=== PATIENT | male | born 1975 | race Caucasian/White ===

== ENCOUNTER 2016-04-25 05:09 | Observation (INO) ==
[2016-04-25 05:53] LABS: Basophils # 0.1 K/mcL (0.0-0.2); Basophils % 0.5 %; Eosinophils # 0.1 K/mcL (0.0-0.6); Eosinophils % 0.4 %; Hematocrit 44.6 % (37.5-50.1); Hemoglobin 15.1 g/dL (12.9-16.9); Immature Granulocytes % 0.6 % (0-4); Lymphocytes # 1.3 K/mcL (0.6-4.6); Lymphocytes % 11.4 %; Mean Corpuscular HGB Conc 33.9 g/dL (31.6-35.5); Mean Corpuscular Hemoglobin 29.5 pg (28.0-33.3); Mean Corpuscular Volume 87.1 fL (83.0-100.0); Mean Platelet Volume 9.4 fL (9.4-12.4); Monocytes % 8.6 %; Neutrophils # 9.1 K/mcL (1.6-8.9); Platelet Count 287 K/mcL (140-400); Red Blood Count 5.12 M/mcL (4.19-5.50); Red Cell Distribution Width 13.8 % (11.5-14.5); Segmented Neutrophils % 78.5 %
--- NOTE | 2016-04-25 05:58 | Emergency Department Note ---
Disposition Clinical Impression: Light-headedness Disposition: Still a Patient Condition: Fair Referrals: Unassigned,Provider [Non-Partnered Physician] - Forms: ED Satisfaction Letter Time of Disposition: 06:24 General Adult HPI - General Chief complaint: ED Dizziness Stated complaint: dizziness Time Seen by Provider: 04/25/16 05:14 Source: patient Limitations: no limitations Nursing Notes Reviewed: Yes Vital Signs Reviewed: Yes - History of Present Illness HPI Narrative: 40 yo male c/o acute onset of dizziness, lightheadedness, weakness. He states he symptoms started upon waking approximately 12 hours ago. His symptoms are completely to some shortness of breath. Describes some head pain that radiates down to his neck. Dizziness and symptoms are worse with movement of his head. Denies any chest pain exertional component of the symptoms, diaphoresis, extremity pain. Since he has been noncompliant with his hypertensive medication. Pain Scale: 10 - Related Data Allergies Allergy/AdvReac Type Severity Reaction Status Date / Time No Known Allergies Allergy Verified 04/25/16 06:21 All systems ED: reviewed and negative except as stated. Constitutional: Denies: fever, chills Eyes: Denies: vision change ENT ED: Denies: throat pain Cardiovascular: Denies: chest pain, palpitations, syncope Respiratory: Reports: dyspnea. Denies: cough Gastrointestinal: Denies: abdominal pain, nausea, vomiting Genitourinary: Denies: dysuria Musculoskeletal: Denies: back pain Integumentary: Reports: rash Neurological: Reports: as per HPI. Denies: headache Endocrine: Denies: fatigue Allergic/Immunologic: Denies: facial swelling Past Medical History - Past Medical History Medical history: Reports: hypertension, other Psychiatric history: Reports: no psych history - Social History Smoking Status: Current every day smoker Smokeless Tobacco Status: No Alcohol use: Reports: occasionally Drug use: Reports: none Physical Exam - General Limitations: no limitations General appearance: alert, in no apparent distress - Head Head exam: atraumatic - Eye Eye exam: Present: PERRL, EOMI. Absent: conjunctival injection - ENT ENT exam: mucous membranes moist - Chest Chest inspection: Present: normal inspection, symmetric chest wall rise - Respiratory Respiratory exam: Present: normal lung sounds bilaterally. Absent: respiratory distress - Cardiovascular Cardiovascular exam: Present: normal rhythm, tachycardia - Abdominal Exam Abdominal exam: Present: soft, Non-Tender - Male Scrotal exam: cremasteric reflex present: left - Extremities Exam Extremities exam: Present: normal capillary refill - Expanded Lower Extremity Exam Hip/Pelvis exam: Present: tenderness (right inguinal and anterior thigh) Knee exam: Absent: tenderness Lower leg exam: Present: tenderness (right medial posterior calf), erythema Neurovascular/Tendon exam: Present: normal capillary refill - Back Exam Back exam: Present: full ROM - Neurological Exam Neurological exam: Present: alert, oriented X3, CN II-XII intact - Expanded Neurological Exam Patient oriented to: Present: person, place, time Speech: Present: fluid speech Cerebellar function: finger to nose: Normal, heel to heath: Normal Motor strength - LUE: 5/5 Motor strength - RUE: 5/5 Motor strength - LLE: 5/5 Motor strength - RLE: 5/5 Coma Scale Eye Opening: Spontaneous Coma Scale Motor Response: Obeys Commands Coma Scale Verbal Response: Oriented Coma Scale Total: 15 - Psychiatric Psychiatric exam: Present: normal affect, normal mood - Skin Skin exam: Present: warm, dry, intact, rash (scaly raised patches on erythematous base consistent with psoriasis) Course Course Narrative: Patient presents with multiple complaints. Onset approx 12 hours ago. Pt seen and examined. Pt alert oriented x3. In no acute distress. No gross focal neuro deficits. Cellulitic area over right calf. Pt non compliant with BP meds , and currently taking Enbrel biologic injections for psoriasis. Workup initiated. Patient denies any pain medications at this time. Initial EKG was sinus tachycardia. At this point in time it is at the end of my shift, care of this patient will be transferred over to day shift who will handle additional evaluation, final evaluation and disposition. Please see their further documentation for details. Vital Signs Temperature 99.9 F H 04/25/16 05:10 Pulse Rate 122 04/25/16 05:10 Respiratory Rate 24 04/25/16 05:10 Blood Pressure 150/118 04/25/16 05:10 O2 Sat by Pulse Oximetry 99 04/25/16 05:10 Temperature 99.9 F H 04/25/16 05:10 Pulse Rate 112 04/25/16 06:15 Respiratory Rate 18 04/25/16 06:15 Blood Pressure 162/109 04/25/16 06:15 O2 Sat by Pulse Oximetry 97 03/04/17 06:15 Oxygen Delivery Oxygen Delivery Room Air Medical Decision Making - Lab Data Result diagrams: 04/25/16 05:32 04/25/16 05:32 Lab Results 04/25/16 04/25/16 04/25/16 Range/Units 05:32 05:32 05:32 WBC 11.5 H (4.3-11.1) K/mcL RBC 5.12 (4.19-5.50) M/mcL Hgb 15.1 (12.9-16.9) g/dL Hct 44.6 (37.5-50.1) % MCV 87.1 (83.0-100.0) fL MCH 29.5 (28.0-33.3) pg MCHC 33.9 (31.6-35.5) g/dL RDW 13.8 (11.5-14.5) % Plt Count 287 (140-400) K/mcL MPV 9.4 (9.4-12.4) fL Immature Gran % 0.6 (0-4) % Seg Neutrophils % 78.5 % Lymphocytes % 11.4 % Monocytes % 8.6 % Eosinophils % 0.4 % Basophils % 0.5 % Neutrophils # 9.1 H (1.6-8.9) K/mcL Lymphocytes # 1.3 (0.6-4.6) K/mcL Monocytes # 1.0 (0.0-1.3) K/mcL Eosinophils # 0.1 (0.0-0.6) K/mcL Basophils # 0.1 (0.0-0.2) K/mcL APTT (26.0-36.0) Seconds D-Dimer (0-500) ng/mLFEU Sodium 137 (136-145) mEq/L Potassium 3.7 (3.5-4.5) mEq/L Chloride 103 (98-109) mEq/L Carbon Dioxide 24 (19-29) mEq/L BUN 13 (8-26) mg/dL Creatinine 1.32 H (0.72-1.25) mg/dL Est GFR ( Amer) > 60 (> 60) Est GFR (Non-Af Amer) 60 (> 60) BUN/Creatinine Ratio 10 (6-26) Glucose 95 (70-99) mg/dL Calculated Osmolality 284 (280-300) Calcium 8.8 (8.6-10.8) mg/dL Troponin I 0.00 (0-0.03) ng/mL 04/25/16 Range/Units 05:32 WBC (4.3-11.1) K/mcL RBC (4.19-5.50) M/mcL Hgb (12.9-16.9) g/dL Hct (37.5-50.1) % MCV (83.0-100.0) fL MCH (28.0-33.3) pg MCHC (31.6-35.5) g/dL RDW (11.5-14.5) % Plt Count (140-400) K/mcL MPV (9.4-12.4) fL Immature Gran % (0-4) % Seg Neutrophils % % Lymphocytes % % Monocytes % % Eosinophils % % Basophils % % Neutrophils # (1.6-8.9) K/mcL Lymphocytes # (0.6-4.6) K/mcL Monocytes # (0.0-1.3) K/mcL Eosinophils # (0.0-0.6) K/mcL Basophils # (0.0-0.2) K/mcL APTT 28.3 (26.0-36.0) Seconds D-Dimer 599 H (0-500) ng/mLFEU Sodium (136-145) mEq/L Potassium (3.5-4.5) mEq/L Chloride (98-109) mEq/L Carbon Dioxide (19-29) mEq/L BUN (8-26) mg/dL Creatinine (0.72-1.25) mg/dL Est GFR ( Amer) (> 60) Est GFR (Non-Af Amer) (> 60) BUN/Creatinine Ratio (6-26) Glucose (70-99) mg/dL Calculated Osmolality (280-300) Calcium (8.6-10.8) mg/dL Troponin I (0-0.03) ng/mL Attestation Statement - Attestation Attestation: I am signing this chart in accordance with current hospital policy. I did not perform a history and physical exam on this patient. I was not directly involved in this patients care during their Emergency Department visit. James Riley MD
[2016-04-25 06:00] LABS: BUN/Creatinine Ratio 10 (6-26); Blood Urea Nitrogen 13 mg/dL (8-26); Calcium 8.8 mg/dL (8.6-10.8); Carbon Dioxide 24 mEq/L (19-29); Chloride 103 mEq/L (98-109); Glucose 95 mg/dL (70-99); Osmolality,Calculated 284 (280-300); Potassium 3.7 mEq/L (3.5-4.5); Sodium 137 mEq/L (136-145); eGFR For African Americans > 60 (> 60); eGFR For Non-African Americans 60 (> 60)
[2016-04-25 06:12] LABS: Activated Partial Thrombo Time 28.3 Seconds (26.0-36.0)
[2016-04-25] MEDS ORDERED: 0.9 % Sodium Chloride 1,000 ML IVC ONE ×2 (06:17→06:50)
--- NOTE | 2016-04-25 07:35 | Emergency Department Note ---
Disposition Clinical Impression: Light-headedness, Transient cerebral ischemia Disposition: Admitted As Inpatient Condition: Fair Referrals: Unassigned,Provider [Non-Partnered Physician] - Forms: ED Satisfaction Letter Time of Disposition: 09:45 General Adult HPI - General Chief complaint: ED Dizziness Stated complaint: dizziness Time Seen by Provider: 04/25/16 05:14 Source: patient Mode of arrival: private vehicle Limitations: no limitations Nursing Notes Reviewed: Yes Vital Signs Reviewed: Yes - History of Present Illness Pain Scale: 10 - Related Data Allergies Allergy/AdvReac Type Severity Reaction Status Date / Time No Known Allergies Allergy Verified 04/25/16 06:21 Past Medical History - Past Medical History Medical history: Reports: hypertension, other Psychiatric history: Reports: no psych history - Social History Smoking Status: Current every day smoker Smokeless Tobacco Status: No Alcohol use: Reports: occasionally Drug use: Reports: none Physical Exam - General Limitations: no limitations General appearance: alert, in no apparent distress Course - Reevaluation(s) Reevaluation #1: 40-year-old male complaining of dizziness, fatigue and generalized weakness. I took over care of this patient at 0 600. Patient had a positive d-dimer, we ruled out pulmonary embolism and DVT with CTA of the chest as well as a venous Doppler. Patient was ambulated after receiving IV fluids and had an ataxic gait. I discussed this with Dr. Bailey and patient will have an MRI of the brain performed. Patient will be reevaluated after this imaging study, possible admission if symptoms do not subside. Time: 08:00 Reevaluation #2: MRI of the brain negative for any acute process, however attempted to ambulate patient and he remains ataxic. Questionable if patient is having TIA-like symptoms as he describes numbness and tingling to his face. Discussed with hospitalist, will admit patient for ataxia, TIA rule out, dizziness/ lightheadedness. I discussed this with patient and he verbalized understanding and agreement with plan of care. Vital signs currently within normal limits. Time: 09:41 Vital Signs Temperature 99.9 F H 04/25/16 05:10 Pulse Rate 122 04/25/16 05:10 Respiratory Rate 24 04/25/16 05:10 Blood Pressure 150/118 04/25/16 05:10 O2 Sat by Pulse Oximetry 99 04/25/16 05:10 Temperature 99.1 F 04/25/16 08:05 Pulse Rate 102 04/25/16 09:31 Respiratory Rate 18 04/25/16 09:31 Blood Pressure 132/91 04/25/16 09:31 O2 Sat by Pulse Oximetry 97 04/25/16 09:31 Oxygen Delivery Oxygen Delivery Room Air Medical Decision Making - Lab Data Result diagrams: 04/25/16 05:32 04/25/16 05:32 Lab Results 04/25/16 04/25/16 04/25/16 Range/Units 05:32 05:32 05:32 WBC 11.5 H (4.3-11.1) K/mcL RBC 5.12 (4.19-5.50) M/mcL Hgb 15.1 (12.9-16.9) g/dL Hct 44.6 (37.5-50.1) % MCV 87.1 (83.0-100.0) fL MCH 29.5 (28.0-33.3) pg MCHC 33.9 (31.6-35.5) g/dL RDW 13.8 (11.5-14.5) % Plt Count 287 (140-400) K/mcL MPV 9.4 (9.4-12.4) fL Immature Gran % 0.6 (0-4) % Seg Neutrophils % 78.5 % Lymphocytes % 11.4 % Monocytes % 8.6 % Eosinophils % 0.4 % Basophils % 0.5 % Neutrophils # 9.1 H (1.6-8.9) K/mcL Lymphocytes # 1.3 (0.6-4.6) K/mcL Monocytes # 1.0 (0.0-1.3) K/mcL Eosinophils # 0.1 (0.0-0.6) K/mcL Basophils # 0.1 (0.0-0.2) K/mcL APTT (26.0-36.0) Seconds D-Dimer (0-500) ng/mLFEU Sodium 137 (136-145) mEq/L Potassium 3.7 (3.5-4.5) mEq/L Chloride 103 (98-109) mEq/L Carbon Dioxide 24 (19-29) mEq/L BUN 13 (8-26) mg/dL Creatinine 1.32 H (0.72-1.25) mg/dL Est GFR ( Amer) > 60 (> 60) Est GFR (Non-Af Amer) 60 (> 60) BUN/Creatinine Ratio 10 (6-26) Glucose 95 (70-99) mg/dL Calculated Osmolality 284 (280-300) Lactic Acid (0.5-2.2) mmol/L Calcium 8.8 (8.6-10.8) mg/dL Troponin I 0.00 (0-0.03) ng/mL 04/25/16 04/25/16 Range/Units 05:32 05:32 WBC (4.3-11.1) K/mcL RBC (4.19-5.50) M/mcL Hgb (12.9-16.9) g/dL Hct (37.5-50.1) % MCV (83.0-100.0) fL MCH (28.0-33.3) pg MCHC (31.6-35.5) g/dL RDW (11.5-14.5) % Plt Count (140-400) K/mcL MPV (9.4-12.4) fL Immature Gran % (0-4) % Seg Neutrophils % % Lymphocytes % % Monocytes % % Eosinophils % % Basophils % % Neutrophils # (1.6-8.9) K/mcL Lymphocytes # (0.6-4.6) K/mcL Monocytes # (0.0-1.3) K/mcL Eosinophils # (0.0-0.6) K/mcL Basophils # (0.0-0.2) K/mcL APTT 28.3 (26.0-36.0) Seconds D-Dimer 599 H (0-500) ng/mLFEU Sodium (136-145) mEq/L Potassium (3.5-4.5) mEq/L Chloride (98-109) mEq/L Carbon Dioxide (19-29) mEq/L BUN (8-26) mg/dL Creatinine (0.72-1.25) mg/dL Est GFR ( Amer) (> 60) Est GFR (Non-Af Amer) (> 60) BUN/Creatinine Ratio (6-26) Glucose (70-99) mg/dL Calculated Osmolality (280-300) Lactic Acid 1.3 (0.5-2.2) mmol/L Calcium (8.6-10.8) mg/dL Troponin I (0-0.03) ng/mL
[2016-04-25] MEDS ORDERED: Ketorolac 15 MG/ML VIAL IVP ONE (07:50)
--- NOTE | 2016-04-25 07:53 | Emergency Department Note ---
Disposition Clinical Impression: Light-headedness Disposition: Still a Patient Condition: Fair Referrals: Unassigned,Provider [Non-Partnered Physician] - Forms: ED Satisfaction Letter General Adult HPI - General Chief complaint: ED Dizziness Stated complaint: dizziness Time Seen by Provider: 04/25/16 05:14 Source: patient Mode of arrival: private vehicle Limitations: no limitations - History of Present Illness Pain Scale: 10 - Related Data Allergies Allergy/AdvReac Type Severity Reaction Status Date / Time No Known Allergies Allergy Verified 04/25/16 06:21 Constitutional: Denies: fever, chills Eyes: Denies: vision change ENT ED: Denies: throat pain Cardiovascular: Denies: chest pain, palpitations, syncope Respiratory: Reports: dyspnea. Denies: cough Gastrointestinal: Denies: abdominal pain, nausea, vomiting Genitourinary: Denies: dysuria Musculoskeletal: Denies: back pain Integumentary: Reports: rash Neurological: Reports: as per HPI. Denies: headache Endocrine: Denies: fatigue Allergic/Immunologic: Denies: facial swelling Past Medical History - Past Medical History Medical history: Reports: hypertension, other Psychiatric history: Reports: no psych history - Social History Smoking Status: Current every day smoker Smokeless Tobacco Status: No Alcohol use: Reports: occasionally Drug use: Reports: none Physical Exam - General Limitations: no limitations General appearance: alert, in no apparent distress Course Vital Signs Temperature 99.9 F H 04/25/16 05:10 Pulse Rate 122 04/25/16 05:10 Respiratory Rate 24 04/25/16 05:10 Blood Pressure 150/118 04/25/16 05:10 O2 Sat by Pulse Oximetry 99 04/25/16 05:10 Temperature 99.9 F H 04/25/16 05:10 Pulse Rate 108 04/25/16 07:20 Respiratory Rate 18 04/25/16 07:20 Blood Pressure 136/90 04/25/16 07:20 O2 Sat by Pulse Oximetry 98 04/25/16 07:20 Oxygen Delivery Oxygen Delivery Room Air Medical Decision Making - Lab Data Result diagrams: 04/25/16 05:32 04/25/16 05:32 Lab Results 04/25/16 04/25/16 04/25/16 Range/Units 05:32 05:32 05:32 WBC 11.5 H (4.3-11.1) K/mcL RBC 5.12 (4.19-5.50) M/mcL Hgb 15.1 (12.9-16.9) g/dL Hct 44.6 (37.5-50.1) % MCV 87.1 (83.0-100.0) fL MCH 29.5 (28.0-33.3) pg MCHC 33.9 (31.6-35.5) g/dL RDW 13.8 (11.5-14.5) % Plt Count 287 (140-400) K/mcL MPV 9.4 (9.4-12.4) fL Immature Gran % 0.6 (0-4) % Seg Neutrophils % 78.5 % Lymphocytes % 11.4 % Monocytes % 8.6 % Eosinophils % 0.4 % Basophils % 0.5 % Neutrophils # 9.1 H (1.6-8.9) K/mcL Lymphocytes # 1.3 (0.6-4.6) K/mcL Monocytes # 1.0 (0.0-1.3) K/mcL Eosinophils # 0.1 (0.0-0.6) K/mcL Basophils # 0.1 (0.0-0.2) K/mcL APTT (26.0-36.0) Seconds D-Dimer (0-500) ng/mLFEU Sodium 137 (136-145) mEq/L Potassium 3.7 (3.5-4.5) mEq/L Chloride 103 (98-109) mEq/L Carbon Dioxide 24 (19-29) mEq/L BUN 13 (8-26) mg/dL Creatinine 1.32 H (0.72-1.25) mg/dL Est GFR ( Amer) > 60 (> 60) Est GFR (Non-Af Amer) 60 (> 60) BUN/Creatinine Ratio 10 (6-26) Glucose 95 (70-99) mg/dL Calculated Osmolality 284 (280-300) Lactic Acid (0.5-2.2) mmol/L Calcium 8.8 (8.6-10.8) mg/dL Troponin I 0.00 (0-0.03) ng/mL 04/25/16 04/25/16 Range/Units 05:32 05:32 WBC (4.3-11.1) K/mcL RBC (4.19-5.50) M/mcL Hgb (12.9-16.9) g/dL Hct (37.5-50.1) % MCV (83.0-100.0) fL MCH (28.0-33.3) pg MCHC (31.6-35.5) g/dL RDW (11.5-14.5) % Plt Count (140-400) K/mcL MPV (9.4-12.4) fL Immature Gran % (0-4) % Seg Neutrophils % % Lymphocytes % % Monocytes % % Eosinophils % % Basophils % % Neutrophils # (1.6-8.9) K/mcL Lymphocytes # (0.6-4.6) K/mcL Monocytes # (0.0-1.3) K/mcL Eosinophils # (0.0-0.6) K/mcL Basophils # (0.0-0.2) K/mcL APTT 28.3 (26.0-36.0) Seconds D-Dimer 599 H (0-500) ng/mLFEU Sodium (136-145) mEq/L Potassium (3.5-4.5) mEq/L Chloride (98-109) mEq/L Carbon Dioxide (19-29) mEq/L BUN (8-26) mg/dL Creatinine (0.72-1.25) mg/dL Est GFR ( Amer) (> 60) Est GFR (Non-Af Amer) (> 60) BUN/Creatinine Ratio (6-26) Glucose (70-99) mg/dL Calculated Osmolality (280-300) Lactic Acid 1.3 (0.5-2.2) mmol/L Calcium (8.6-10.8) mg/dL Troponin I (0-0.03) ng/mL Attestation Statement - Attestation Attestation: I examined this patient and my medical decision-making was reviewed with the KEY ACCOUNT COORDINATOR/PA/Advanced Practice Nurse/Resident Physician. I agree with the documented findings, disposition and treatment plan as described except to the extent set forth below. She was seen and evaluated by Rufus, physician radiology physician assistant and Dr. Riley, the night physician He ambulated to the bathroom and was visualized to be ataxic. I did review his labs and imaging studies. He has a low-grade fever and tachycardia. He remained symptomatic in terms of feeling dizzy. MRI brain ordered.
[2016-04-25] MEDS ORDERED: Naloxone 0.4 MG/ML INJ IVP PRN (10:17)
--- NOTE | 2016-04-25 10:36 | Internal Med History&Physical ---
Date of Encounter: 04/25/16 Time of Encounter: 10:27 Assessment and Plan (1) Light-headedness Status: Acute Lightheadedness: -Patient of the persistent lightheadedness. -Noted that there is a mildly elevated white blood cell count. -Patient has an ataxic gait, normal MRI. -Patient's tympanic membrane on both sides is normal. -The left side he has mild inflammation around his inner ear Plan: -Blood culture. -IV ceftriaxone/IV azithromycin -If his symptoms does not get better in next 24 hours, please consider ENT evaluation. (2) Transient cerebral ischemia Status: Resolved TIA: Patient has a slurring of speech, numbness over his lips: Started yesterday 4pm. EKG normal, MRI of the brain normal Plan: -We will observe for next 24 hours. -DVT prophylaxis: Heparin Medical decision-making: This patient has a [id number] risk of worsening neurological status in spite of being on appropriate treatment Qualifiers: Transient cerebral ischemia type: unspecified Qualified Code(s): G45.9 - Transient cerebral ischemic attack, unspecified Internal Medicine - H&P: HPI Chief complaint: numbness over lips and dizziness. Admitted From: Emergency Dept Plans for Post Hospital Care: Home History of present illness: PCP: Dr Cunningham. Brief PMH: HTN, not sure why patient's med list showed enbrel ( he is not aware) HPI: Patient was complaining of slurring of speech, numbness over lips since 4 PM yesterday. His symptoms have gradually worsened. Patient started feeling dizziness since last night. His dizziness was progressively worsened. He denies nausea, vomiting, headache, diplopia or any visual abnormalities. Persistent worsening of dizziness brought him to the emergency room. Workup in the emergency room: Patient was evaluated in the emergency room by restaurant shift supervisor. Basic workup was done. Patient has persistent generalized dizziness. CT scan of the brain was negative. His d-dimer was elevated. Patient's CTA chest was negative for any pulmonary embolism. Patient had an ataxic gait. This was the reason to get a MRI of the brain in the emergency room. MRI of the brain was negative for any acute process. Reason for admission: Persistent low-grade fever, ataxic gait with normal MRI. We will admit him to rule out TIA. Past Med Surg Social Fam HX - Past Medical History Medical history: hypertension, other Psychiatric history: no psych history - Social History Smoking Status: Current every day smoker Smokeless Tobacco Status: No Alcohol use: occasionally Drug use: none Internal Medicine - H&P: Meds BuPROPion SR (12 HR) [Wellbutrin SR] 150 mg PO BID 04/25/16 [History] Buspirone HCl [Buspar] 10 mg PO BID 04/25/16 [History] Citalopram Hydrobromide [Celexa] 20 mg PO DAILY 04/25/16 [History] Etanercept [Enbrel] 50 mg SQ TH 04/25/16 [History] Lisinopril [Zestril] 10 mg PO DAILY 04/25/16 [History] Meloxicam [Mobic] 7.5 mg PO DAILY 04/25/16 [History] Doxycycline 100 mg PO BID #20 capsule 04/28/16 [Rx] HYDROcodone/Acet 5/325 mg [Capulin 5-325 mg] 1 tab PO Q6H PRN #20 tab 04/28/16 [Rx ] Allergies No Known Allergies Allergy (Verified 04/25/16 06:21) All Systems PM: A 10-system review of systems was performed and is negative for pertinent findings except as documented above in the HPI. - Constitutional Constitutional: no chills, no fever(s), no night sweats - EENT Eyes: no change in vision, no discharge, no pain, no photophobia Ears: no ear discharge, no ear pain, no tinnitus Nose, mouth and throat: no dysphagia, no nasal discharge, no neck pain, no sore throat - Cardiovascular Cardiovascular ROS IM: no chest pain, no diaphoresis, no dyspnea, no lightheadedness, no palpitations, no syncope - Respiratory Respiratory: no cough, no dyspnea, no wheezing, no excessive phlegm production - Gastrointestinal Gastrointestinal: no abdominal pain, no diarrhea, no hematemesis, no hematochezia, no melena, no nausea, no vomiting - Musculoskeletal Musculoskeletal ROS IM: no numbness, no tingling - Integumentary Integumentary IM: no rash, no unusual bruising - Neurological Neurological ROS: dizziness, no confusion, no convulsions, no focal weakness, no numbness, no tingling, no tremor(s) Additional comments: Numbness or lip, slurred speech - Hematologic/Lymphatic Hematologic/Lymphatic: no easy bruising - Constitutional Vitals: Temp Pulse Resp BP Pulse Ox 99.1 F 102 18 132/91 97 04/25/16 08:05 04/25/16 09:31 04/25/16 09:31 04/25/16 09:31 04/25/16 09:31 General appearance: Present: A&O X 3, pleasant, no acute distress, answers questions appropriately - Head Head exam: Present: atraumatic, normocephalic - Eye Eye exam: Present: PERRL, conjuntiva pink, sclera anicteric Pupils: Present: PERRL - Neck Neck exam general surgery: Present: supple, trachea midline. Absent: lymphadenopathy - Respiratory Respiratory exam: Present: CTAB. Absent: accessory muscle use, rales, rhonchi, wheezes - Cardiovascular Cardiovascular exam: Present: RRR, +S1, +S2. Absent: diastolic murmur, gallop, rubs, systolic murmur - GI/Abdominal GI/Abdominal exam: Present: normal bowel sounds, soft, no peritoneal signs. Absent: distended, tenderness - Extremities Exam Extremities exam: Present: warm, radial pulses palpable and symetrical. Absent : calf tenderness, cyanotic, pedal edema - Neurological Exam Neurological exam: Present: CN II-XII intact, oriented X3, no focal deficits. Absent: pronater drift, facial droop, speech deficit - Skin Skin exam: Present: dry, intact Internal Med - H&P Results - Labs CBC & Chem 7: 04/28/16 04:12 04/28/16 04:12
[2016-04-25] MEDS ORDERED: Azithromycin 500 MG in D5% in Water 250 ML IVPB SCH (11:00)
[2016-04-25] MEDS: *HR* Morphine 2 MG/ML SYRINGE IVP PRN ×2 (14:27→18:33)
[2016-04-25] MEDS: *HR* Heparin 5,000 UNIT/ML VIAL SQ SCH (18:33)
[2016-04-25] MEDS: BuPROPion SR (12 HR) 150 MG TABLET PO SCH (20:42)
[2016-04-26] MEDS ORDERED: Acetaminophen/Butalbital/CaffeineTABLET PO ONE (00:53)
[2016-04-26 04:06] LABS: Basophils # 0.1 K/mcL (0.0-0.2); Basophils % 0.8 %; Eosinophils % 0.3 %; Hematocrit 42.5 % (37.5-50.1); Hemoglobin 13.9 g/dL (12.9-16.9); Immature Granulocytes % 0.5 % (0-4); Lymphocytes # 2.1 K/mcL (0.6-4.6); Lymphocytes % 21.9 %; Mean Corpuscular HGB Conc 32.7 g/dL (31.6-35.5); Mean Corpuscular Volume 88.7 fL (83.0-100.0); Mean Platelet Volume 10.1 fL (9.4-12.4); Monocytes % 10.2 %; Neutrophils # 6.5 K/mcL (1.6-8.9); Platelet Count 204 K/mcL (140-400); Red Blood Count 4.79 M/mcL (4.19-5.50); Red Cell Distribution Width 13.9 % (11.5-14.5); Segmented Neutrophils % 66.3 %
[2016-04-26 04:21] LABS: Alanine Aminotransferase 18 Units/L (0-55); Albumin 3.2 g/dL (3.5-5.0); Albumin/Globulin Ratio 0.8 (1.1-2.2); Alkaline Phosphatase 55 Units/L (38-126); Aspartate Amino Transferase 16 Units/L (5-34); BUN/Creatinine Ratio 9 (6-26); Bilirubin,Total 0.6 mg/dL (0.2-1.2); Blood Urea Nitrogen 11 mg/dL (8-26); Calcium 8.2 mg/dL (8.6-10.8); Carbon Dioxide 24 mEq/L (19-29); Chloride 105 mEq/L (98-109); Chol/HDL Ratio 3.9 (0-4.9); Cholesterol 144 mg/dL (< 200); Globulin 3.9 g/dL (2.4-3.5); Glucose 99 mg/dL (70-99); HDL Cholesterol 37 mg/dL (40-59); LDL Cholesterol,Calculated 90 mg/dL (0-99); Magnesium 1.9 mg/dL (1.6-2.6); Osmolality,Calculated 283 (280-300); Phosphorous 2.7 mg/dL (2.3-4.7); Potassium 4.1 mEq/L (3.5-4.5); Sodium 137 mEq/L (136-145); Total Protein 7.1 g/dL (6.0-8.3); Triglycerides 83 mg/dL (< 150); eGFR For African Americans > 60 (> 60); eGFR For Non-African Americans > 60 (> 60)
[2016-04-26] MEDS: *HR* Morphine 2 MG/ML SYRINGE IVP PRN ×3 (04:52→17:55)
[2016-04-26] MEDS: *HR* Heparin 5,000 UNIT/ML VIAL SQ SCH ×2 (05:54→17:54)
[2016-04-26] MEDS: BuPROPion SR (12 HR) 150 MG TABLET PO SCH ×2 (09:23→21:53)
[2016-04-26] MEDS ORDERED: Aminoglycoside Consult 1 EACH MC ONE (09:54)
--- NOTE | 2016-04-26 09:57 | Internal Med Progress Note ---
Date of Encounter: 04/26/16 Time of Encounter: 09:00 - Assessment and plan (1) Transient cerebral ischemia Current Visit: Yes Status: Acute Assessment and plan: Slurred speech and numbness to face/lips have resolved. Pt has no deficits. I was unable to assess his gait or lower extremity strength due to the pain in he RLE. 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 Will continue to monitor. Qualifiers: Transient cerebral ischemia type: unspecified Qualified Code(s): G45.9 - Transient cerebral ischemic attack, unspecified (2) Cellulitis Current Visit: Yes Status: Acute Assessment and plan: Pt has redness, swelling, and pain to RLE for 2 days. Pt is not able to bear weight on that leg due to pain. Primary RN marked the perimeter of the area, redness expanded beyond it within an hour. Approx 7cm round, raised area to center with redness extending around it. Pt denies known injury, but says he may have been bitten by something. No leukocytosis today, however, pt is already receiving Rocephin and Zithromax IV since admission. Leukocytosis yesterday. Pt did have a fever on Wednesday 103.2, none today. Doppler done in ER yesterday negative for DVT. Stopped Zithromax and started Vancomycin, pharmacy to dose due to creatinine 1.29. Blood cultures pending. Qualifiers: Site of cellulitis: extremity Site of cellulitis of extremity: lower extremity Laterality: right Qualified Code(s): L03.115 - Cellulitis of right lower limb (3) Light-headedness Current Visit: Yes Status: Acute Assessment and plan: Pt still lightheaded today. Speech is clear and he denies numbness to lips. MRI brain and Head CT both negative yesterday. PERRLA, ross TM clear. Pt states that it is constant and worse with movement of his head. Will start Meclizine 25mg po prn. First dose will be given and we will reassess if that has helped. Labs WNL except creatinine, with a slight elevation of 1.29. Will continue to monitor. - Subjective Interval history: Pt reports still feeling dizzy today. States that it is constant and worse with movement of head. Pt also reports R frontal GRANDE and pain to post neck and upper back that has been constant since Wednesday at 1600. He denies fever, chills, or nausea/vomiting. He also c/o non-productive, moist-sounding cough that started on Sat. I attempted to ambulate pt, but he c/o RLE pain more than dizziness. He requested that I look at his ears and states that his L ear feels "funny". - Constitutional Vitals: Temp Pulse Resp BP Pulse Ox 98.3 F 83 18 134/89 98 04/26/16 08:01 04/26/16 08:01 04/26/16 08:01 04/26/16 08:01 04/26/16 08:11 General appearance: Present: cooperative, A&O X 3, pleasant, no acute distress, answers questions appropriately - Head Head exam: Present: normal inspection, normocephalic - Expanded Head Exam Head exam expanded: Absent: tenderness of temporal artery - Eye Eye exam: Present: PERRL. Absent: nystagmus - ENT ENT exam: Present: mucous membranes moist, normal exam, normal external ear exam , normal oropharynx, TM's normal bilaterally - Neck Neck exam general surgery: Present: normal inspection, tenderness. Absent: lymphadenopathy, nuchal rigidity Additional comments: Post neck tender to palpation - Respiratory Respiratory exam: Present: decreased breath sounds, CTAB. Absent: respiratory distress, rhonchi, wheezes - Cardiovascular Cardiovascular exam: Present: RRR, +S1, +S2. Absent: diastolic murmur, systolic murmur, tachycardia - GI/Abdominal GI/Abdominal exam: Present: normal bowel sounds, soft. Absent: guarding, tenderness - Extremities Exam Extremities exam: Present: calf tenderness, normal capillary refill, pedal edema , tenderness, warm, radial pulses palpable and symetrical. Absent: cyanotic, full ROM, joint swelling, normal inspection - Expanded Lower Extremities Exam Lower Leg exam: Present: erythema, swelling, tenderness - Back Exam Back exam: Present: normal inspection, rash noted. Absent: tenderness Additional comments: Pt has patch of eczema to L flank. - Neurological Exam Neurological exam: Present: alert, oriented X3. Absent: facial droop, speech deficit Additional comments: Unable to assess gait or LE strength due to pain and swelling RLE. - Skin Skin exam: Present: erythema Additional comments: Lg area of redness, pain, swelling to RLE, calf. Internal Medicine: Result - Labs CBC & Chem 7: 04/26/16 02:55 04/26/16 02:55 Labs: Short CBC 04/26/16 Range/Units 02:55 WBC 9.7 (4.3-11.1) K/mcL Hgb 13.9 (12.9-16.9) g/dL Hct 42.5 (37.5-50.1) % Plt Count 204 (140-400) K/mcL Neutrophils # 6.5 (1.6-8.9) K/mcL BMP 04/26/16 02:55 Sodium 137 Potassium 4.1 Chloride 105 Carbon Dioxide 24 BUN 11 Creatinine 1.29 H Glucose 99 Calcium 8.2 L Cardiac Enzymes 04/25/16 04/25/16 04/25/16 Range/Units 10:42 16:33 23:03 Troponin I 0.01 0.00 0.01 (0-0.03) ng/mL Liver Function 04/26/16 Range/Units 02:55 Total Bilirubin 0.6 (0.2-1.2) mg/dL AST 16 (5-34) Units/L ALT 18 (0-55) Units/L Alkaline Phosphatase 55 (38-126) Units/L Albumin 3.2 L (3.5-5.0) g/dL - ABG Interpretation ABG results: PT/INR, D-dimer D-Dimer 599 ng/mLFEU (0-500) H 04/25/16 05:32 Consult Discharge Plan - Plan Referrals: NO,PCP [Primary Care Provider] -
[2016-04-26] MEDS ORDERED: Vancomycin 1,750 MG in D5% in Water 250 ML IVPB SCH (10:00)
[2016-04-26] MEDS: traMADol 50 MG TABLET PO PRN (10:31)
[2016-04-26] MEDS ORDERED: Vancomycin 2,000 MG in D5% in Water 500 ML IVPB ONE (11:00)
[2016-04-27] MEDS ORDERED: Vancomycin 1,500 MG in D5% in Water 250 ML IVPB SCH
[2016-04-27] MEDS: *HR* Morphine 2 MG/ML SYRINGE IVP PRN ×4 (00:46→23:11)
[2016-04-27] MEDS: traMADol 50 MG TABLET PO PRN (04:21)
[2016-04-27 04:47] LABS: Hematocrit 38.8 % (37.5-50.1); Hemoglobin 13.2 g/dL (12.9-16.9); Mean Corpuscular Hemoglobin 29.9 pg (28.0-33.3); Mean Platelet Volume 9.8 fL (9.4-12.4); Platelet Count 224 K/mcL (140-400); Red Blood Count 4.41 M/mcL (4.19-5.50); Red Cell Distribution Width 13.8 % (11.5-14.5)
[2016-04-27 05:05] LABS: BUN/Creatinine Ratio 11 (6-26); Blood Urea Nitrogen 13 mg/dL (8-26); Calcium 8.1 mg/dL (8.6-10.8); Carbon Dioxide 24 mEq/L (19-29); Chloride 108 mEq/L (98-109); Glucose 134 mg/dL (70-99); Osmolality,Calculated 292 (280-300); Sodium 140 mEq/L (136-145); eGFR For African Americans > 60 (> 60); eGFR For Non-African Americans > 60 (> 60)
[2016-04-27] MEDS: *HR* Heparin 5,000 UNIT/ML VIAL SQ SCH ×2 (06:25→16:44)
--- NOTE | 2016-04-27 07:08 | Electrocardiograph Report ---
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
--- NOTE | 2016-04-27 07:40 | Venous Imaging Report ---
LE Venous Duplex Patient Name:Elías Cowan Order Number:[id number] Procedure Date:04/25/2016 Date:1975Age:40 yrs Gender:Male Location:[facility] Room #: 10 Microbiological Lab Technician:Mendez Moses RDCS Referring MD:Moses Bailey MD necktie maker:None Reading MD:Gutierrez Koch MD Primary Indications:Swelling of limb Secondary Indications: Impressions: Normal right lower extremity deep and superficial venous exam. Normal contralateral common femoral vein. Findings Venous Duplex Results: Right: Venous imaging of the lower extremity reveals full patency and normal vessel compressibility of the right distal iliac, right common femoral, right superficial femoral, right popliteal, right posterior tibial, right peroneal, right calf service liaison representative, right saphenofemoral junction, right great saphenous and right lesser saphenous. Doppler signals in the evaluated veins were normal. Left: Venous imaging of the lower extremity reveals full patency and normal vessel compressibility of the left common femoral. Doppler signals in the evaluated veins were normal. Prior Study: No prior study available for comparison. Lower Extremity Venous Duplex Side Vein Compress Spontaneous Flow Augment Diameter (cm) Depth (cm) Right Distal Iliac Normal Yes Phasic Yes Right Common Femoral Normal Yes Phasic Yes Right Superficial Femoral Normal Yes Phasic Yes Right Popliteal Normal Yes Phasic Yes Right Posterior Tibial Normal Yes Phasic Yes Right Peroneal Normal Yes Phasic Yes Right Calf Division Manager Normal Yes Phasic Yes Right Saphenofemoral Junction Normal Yes Phasic Yes Right Great Saphenous Normal Yes Phasic Yes Right Lesser Saphenous Normal Yes Phasic Yes Left Common Femoral Normal Yes Phasic Yes Updated by Gutierrez Koch MD on 04/27/2016 7:33:53 AM electronically signed on 04/27/2016 7:34:19 AM with status of Final
[2016-04-27] MEDS: BuPROPion SR (12 HR) 150 MG TABLET PO SCH ×2 (08:31→21:10)
--- NOTE | 2016-04-27 09:29 | Internal Med Progress Note ---
<Katie Posey - Last Filed: 04/27/16 10:02> Date of Encounter: 04/27/16 Time of Encounter: 09:30 - Subjective Interval history: Patient seen and examined. On examination, patient sitting upright in bed watching television. Patient continues to complain of generalized headache as well as dizziness. He states his blurred vision has improved. Patient's main concern at this time is that he has had several family members who have of aneurysms so he is very concerned. MRI negative for acute processes. We will treat with migraine cocktail and monitor his response. Regarding his cellulitis , area of erythema has progressed approximately 1 inch past the pen markings. He is on ceftriaxone, will reorder vancomycin for broad-spectrum coverage. Blood culture is negative. No leukocytosis or signs of sepsis. Ultrasound negative for DVT. Vital signs are stable. We will continue to treat. He denies shortness of breath. Chest x-ray negative. Chest CTA negative. Mild acute kidney injury resolved. Flu swab negative. No focal neurological weakness is present on examination. ITS Impressions Chest X-Ray 04/25/16 05:48 IMPRESSION: No acute cardiopulmonary process. D/ / 04/25/2016 09:16:43 Samantha Jung MD / Liza Cunningham Interpreting Provider: Samantha Jung MD Chest CTA 04/25/16 06:49 IMPRESSION: 1. No CT evidence of a pulmonary embolism. 2. Mild subpleural airspace opacity within the right lower lobe, atelectasis favored over pneumonia. D/ / 04/25/2016 09:52:49 Lennox Seay MD / Liza Cunningham Interpreting Provider: Lennox Seay MD Brain MRI 04/25/16 07:50 IMPRESSION: 1. No acute intracranial abnormality. Specifically, no acute infarction. 2. Mild diffuse parenchymal volume loss. D/ / Sourav Daley MD / Sourav Daley MD Interpreting Provider: Sourav Daley MD - Constitutional Vitals: Temp Pulse Resp BP Pulse Ox 97.3 F L 70 17 125/70 95 04/27/16 08:15 04/27/16 08:15 04/27/16 08:15 04/27/16 08:15 04/27/16 08:15 Internal Medicine: Result - Labs CBC & Chem 7: 04/27/16 04:09 04/27/16 04:09 Labs: Short CBC 04/27/16 Range/Units 04:09 WBC 7.3 (4.3-11.1) K/mcL Hgb 13.2 (12.9-16.9) g/dL Hct 38.8 (37.5-50.1) % Plt Count 224 (140-400) K/mcL BMP 04/27/16 04:09 Sodium 140 Potassium 4.0 Chloride 108 Carbon Dioxide 24 BUN 13 Creatinine 1.17 Glucose 134 H Calcium 8.1 L - ABG Interpretation ABG results: PT/INR, D-dimer D-Dimer 599 ng/mLFEU (0-500) H 04/25/16 05:32 Consult Discharge Plan - Plan Referrals: NO,PCP [Primary Care Provider] - <Lida Chacon - Last Filed: 04/27/16 10:40> Date of Encounter: 04/27/16 Time of Encounter: 09:10 - Assessment and plan (1) Transient cerebral ischemia Current Visit: Yes Status: Acute Assessment and plan: Slurred speech and numbness to face/lips have resolved. Pt has no deficits. 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 Will continue to monitor. Qualifiers: Transient cerebral ischemia type: unspecified Qualified Code(s): G45.9 - Transient cerebral ischemic attack, unspecified (2) Cellulitis Current Visit: Yes Status: Acute Assessment and plan: Pt has redness, swelling, and pain to RLE for 2 days. Pt has been up in room today and to shower, states that calf is still painful, however is better than yesterday. Approx 7cm round, raised area to center with redness extending around it. Area appears less red and warm than yesterday and area of redness extended distally beyond marking. Pt is on Rocephin 2g IV daily. He did get Vancomycin 1750mg yesterday x 1 and the medication was changed back to Rocephin per physician suggestion. Will restart Qualifiers: Site of cellulitis: extremity Site of cellulitis of extremity: lower extremity Laterality: right Qualified Code(s): L03.115 - Cellulitis of right lower limb (3) Head ache Current Visit: Yes Status: Acute Assessment and plan: Pt has had a headache x 2 days. Pain is R frontal and has pain to post neck. Denies nausea, vomiting, photo/phonophobia, vision changes. Pt has not gotten relief from Tramadol or Morphine. Will try Benadryl, Toradol, and Compazine x 1 and monitor. Qualifiers: Headache type: unspecified Headache chronicity pattern: acute headache Intractability: intractable Qualified Code(s): R51 - Headache (4) Light-headedness Current Visit: Yes Status: Acute Assessment and plan: Pt still lightheaded today. Speech is clear and he denies numbness to lips. PERRLA, no nystagmus. Pt states that now it is intermittent, occurring maybe 2x/ hour, lasting about 5 minutes each time with associated SOB, "because it scares me." He denies chest pain, nausea or diaphoresis with it. Continue Meclazine and add Scopalomine patch. Labs WNL except creatinine, with a slight today, now at 1.42. Will continue to monitor. (5) Tobacco abuse Current Visit: Yes Status: Chronic Assessment and plan: Pt is a pack per day smoker. States that he feels his cough has resolved due to him not smoking for the last 3 days. Pt states that he wants to quit and that he is ready. Refused Nicoderm patch and any other cessation aids. (6) Obesity (BMI 30-39.9) Current Visit: Yes Status: Chronic Assessment and plan: Chronic. Lifestyle changes. - Time Spent With Patient less than 15 minutes - Subjective Interval history: Pt reports still feeling dizzy today, states that it now comes in waves from his stomach, lasts about 5 minutes each time and happens about 2 times per hour. Pt was lying prone so that I could look at his R post leg and states that he got dizzy when he returned to supine. Pt still complains of headache. He denies fever, chills, or nausea/vomiting. He states that his cough has resolved and feels that it is due to him not smoking for 3 days now. We discussed smoking cessation and he says that he is ready and is going to do it on his own. Pt states that RLE feels some better. - Constitutional Vitals: Temp Pulse Resp BP Pulse Ox 97.3 F L 70 17 125/70 95 04/27/16 08:15 04/27/16 08:15 04/27/16 08:15 04/27/16 08:15 04/27/16 08:15 General appearance: Present: cooperative, A&O X 3, pleasant, no acute distress, answers questions appropriately - Head Head exam: Present: normal inspection - Eye Eye exam: Present: normal appearance, conjuntiva pink. Absent: nystagmus - ENT ENT exam: Present: mucous membranes moist, normal exam - Neck Neck exam general surgery: Present: normal inspection. Absent: lymphadenopathy , tenderness - Respiratory Respiratory exam: Present: CTAB. Absent: rales, rhonchi, wheezes, tachypnea - Cardiovascular Cardiovascular exam: Present: RRR, +S1, +S2. Absent: diastolic murmur, systolic murmur - GI/Abdominal GI/Abdominal exam: Present: hyperactive bowel sounds, soft. Absent: tenderness - Extremities Exam Extremities exam: Present: full ROM, normal capillary refill, normal inspection , tenderness, warm. Absent: joint swelling, pedal edema Additional comments: Pt has +2 pedal pulses ross. R calf still warm and tender, however, is improved from yesterday. - Neurological Exam Neurological exam: Present: alert, oriented X3. Absent: facial droop, speech deficit - Skin Skin exam: Present: erythema, rash Additional comments: Pt has eczema. Lg patch to L flank, scattered round patches to entire body. Internal Medicine: Result - Labs CBC & Chem 7: 04/27/16 04:09 04/27/16 04:09 Labs: Short CBC 04/27/16 Range/Units 04:09 WBC 7.3 (4.3-11.1) K/mcL Hgb 13.2 (12.9-16.9) g/dL Hct 38.8 (37.5-50.1) % Plt Count 224 (140-400) K/mcL BMP 04/27/16 04:09 Sodium 140 Potassium 4.0 Chloride 108 Carbon Dioxide 24 BUN 13 Creatinine 1.17 Glucose 134 H Calcium 8.1 L - ABG Interpretation ABG results: PT/INR, D-dimer D-Dimer 599 ng/mLFEU (0-500) H 04/25/16 05:32
[2016-04-27] MEDS ORDERED: Scopolamine Patch 1.5 MG PATCH.TD72 TD SCH (09:30)
[2016-04-27] MEDS ORDERED: Ketorolac 30 MG/ML VIAL IVP ONE ×2 (09:58→10:26)
[2016-04-27] MEDS ORDERED: Prochlorperazine 10 MG/2 ML VIAL IVP ONE (09:59)
[2016-04-27] MEDS ORDERED: Vancomycin 1,750 MG in D5% in Water 250 ML IVPB SCH ×2 (10:00→11:00)
[2016-04-27] MEDS ORDERED: Metoclopramide 10 MG/2 ML VIAL IVP ONE (10:26)
[2016-04-27] MEDS: Vancomycin 1,750 MG in D5% in Water 500 ML IVPB SCH ×2 (11:48→23:05)
[2016-04-28 05:16] LABS: Basophils # 0.1 K/mcL (0.0-0.2); Basophils % 1.2 %; Eosinophils # 0.5 K/mcL (0.0-0.6); Eosinophils % 7.3 %; Hematocrit 39.6 % (37.5-50.1); Hemoglobin 13.2 g/dL (12.9-16.9); Immature Granulocytes % 0.1 % (0-4); Lymphocytes # 2.7 K/mcL (0.6-4.6); Lymphocytes % 40.1 %; Mean Corpuscular HGB Conc 33.3 g/dL (31.6-35.5); Mean Corpuscular Hemoglobin 29.7 pg (28.0-33.3); Mean Platelet Volume 9.8 fL (9.4-12.4); Monocytes # 0.6 K/mcL (0.0-1.3); Neutrophils # 2.8 K/mcL (1.6-8.9); Platelet Count 269 K/mcL (140-400); Red Blood Count 4.45 M/mcL (4.19-5.50); Red Cell Distribution Width 13.9 % (11.5-14.5); Segmented Neutrophils % 42.3 %
[2016-04-28 05:30] LABS: BUN/Creatinine Ratio 10 (6-26); Blood Urea Nitrogen 11 mg/dL (8-26); Calcium 8.2 mg/dL (8.6-10.8); Carbon Dioxide 23 mEq/L (19-29); Chloride 108 mEq/L (98-109); Glucose 107 mg/dL (70-99); Osmolality,Calculated 290 (280-300); Potassium 3.8 mEq/L (3.5-4.5); Sodium 140 mEq/L (136-145); eGFR For African Americans > 60 (> 60); eGFR For Non-African Americans > 60 (> 60)
[2016-04-28] MEDS: *HR* Heparin 5,000 UNIT/ML VIAL SQ SCH (06:30)
[2016-04-28 07:27] VITALS: BP 115/74
[2016-04-28] MEDS: *HR* Morphine 2 MG/ML SYRINGE IVP PRN (07:38)
[2016-04-28] MEDS: BuPROPion SR (12 HR) 150 MG TABLET PO SCH (07:38)
--- NOTE | 2016-04-28 09:47 | Discharge Summary ---
Date of Encounter: 04/28/16 Time of Encounter: 09:00 - Discharge Diagnosis (1) Cellulitis Priority: Primary Status: Acute Comments: Was treated with ceftriaxone and vancomycin while admitted. Mild leukocytosis resolved on day 1. Ultrasound negative for DVT. Vital signs stable, no signs of sepsis. Erythema lessened greatly on day of discharge. Blood cultures negative 2. Will send home on by mouth Doxy Qualifiers: Site of cellulitis: extremity Site of cellulitis of extremity: lower extremity Laterality: right Qualified Code(s): L03.115 - Cellulitis of right lower limb (2) Leukocytosis Priority: Primary Status: Resolved (3) Elevated d-dimer Priority: Primary Status: Ruled-out Comments: CTA negative (4) Head ache Priority: Primary Status: Resolved Comments: Resolved with migraine cocktail. Follow-up outpatient. Qualifiers: Headache type: unspecified Headache chronicity pattern: acute headache Intractability: intractable Qualified Code(s): R51 - Headache (5) Lightheadedness Priority: Primary Status: Resolved (6) Transient cerebral ischemia Priority: Primary Status: Resolved Qualifiers: Transient cerebral ischemia type: unspecified Qualified Code(s): G45.9 - Transient cerebral ischemic attack, unspecified (7) Obesity (BMI 30-39.9) Priority: Secondary Status: Chronic (8) Tobacco abuse Priority: Secondary Status: Chronic Comments: Declined counseling and declined nicotine replacement therapy while admitted - Discharge Medications Prescriptions: Doxycycline 100 mg PO BID #20 capsule HYDROcodone/Acet 5/325 mg [[place] 5-325 mg] 1 tab PO Q6H PRN #20 tab PRN Reason: Pain Home Medications: BuPROPion SR (12 HR) [Wellbutrin SR] 150 mg PO BID 04/25/16 [History] Buspirone HCl [Buspar] 10 mg PO BID 04/25/16 [History] Citalopram Hydrobromide [Celexa] 20 mg PO DAILY 04/25/16 [History] Etanercept [Enbrel] 50 mg SQ TH 04/25/16 [History] Lisinopril [Zestril] 10 mg PO DAILY 04/25/16 [History] Meloxicam [Mobic] 7.5 mg PO DAILY 04/25/16 [History] Doxycycline 100 mg PO BID #20 capsule 04/28/16 [Rx] HYDROcodone/Acet 5/325 mg [[place] 5-325 mg] 1 tab PO Q6H PRN #20 tab 04/28/16 [Rx ] Allergies/Adverse Reactions: Allergies No Known Allergies Allergy (Verified 04/25/16 06:21) Date of admission: 04/25/16 09:59 Primary care physician: PCP NO Consults: 04/25/16 11:57 Consult to Fish Warden [CONS] Routine Reason for SW Consult: Pt cannot afford medications Discharging clinician: Katie Gomez Anticipated date of discharge: 04/28/16 - Patient Status Disposition: Home, Self-Care Condition: Fair Functional capacity at discharge: independent ambulation Overall status at discharge: patient is progressing back to baseline - Discharge Instructions Follow Up With: Bryan Cunningham DO [Non-Partnered Physician] - Bryan Cunningham DO [Non-Partnered Physician] - Additional Instructions: Follow-up with her new primary care provider within one to 2 weeks. (Unclear which Alfredito Cunningham he sees as both are family physicians.) - Diet and Activity Activity: increase activity as tolerated Diet: low salt diet Hospital course: Mr. Cowan is a 40 year old male with past medical history of hypertension and tobacco abuse. Patient presented to the emergency department chief complaint slurred speech, numbness on his lips that started on the day prior to presentation. Patient stating his symptoms are gradually worsened and he started to feel dizzy which got progressively worse. He denied nausea, vomiting , headache, diplopia, or vision abnormalities. The persistent dizziness was what prompted him to present to the emergency room. Workup in the emergency department revealing elevated d-dimer, CTA negative for PE. Chest x-ray negative. Brain MRI negative for acute processes. Patient had an ataxic gait and the emergency department. He was admitted to the hospitalist service for further evaluation and management. Patient also had a low-grade fever which resolved shortly after admission. He had mild leukocytosis which also resolved on the first day of his 4 day admission. While admitted, patient was noted to have right lower extremity cellulitis that he states was present 2 days prior to presentation. Ultrasound ruled out DVT. He was treated with ceftriaxone and vancomycin while admitted. Blood cultures were negative 2. Vital signs were stable and he did not display no signs of sepsis. He had mild acute kidney injury that also resolved. He was swab for the flu which was negative. His slurred speech and numbness on his lips resolved while admitted. No focal neurological weakness is present throughout this admission. His erythema around his cellulitis had lessened greatly on the day of discharge and he was discharged home on doxycycline for 10 days. OARRS report checked fine and he was sent with a small supply of pain medication. He also had a headache while admitted that was resolved with migraine cocktail. He denied headache on day of discharge. He was discharged home in stable condition with close outpatient follow-up recommended. ITS Impressions Chest X-Ray 04/25/16 05:48 IMPRESSION: No acute cardiopulmonary process. D/ / 04/25/2016 09:16:43 Samantha Jung MD / Liza Cunningham Interpreting Provider: Samantha Jung MD Chest CTA 04/25/16 06:49 IMPRESSION: 1. No CT evidence of a pulmonary embolism. 2. Mild subpleural airspace opacity within the right lower lobe, atelectasis favored over pneumonia. D/ / 04/25/2016 09:52:49 Lennox Seay MD / Liza Cunningham Interpreting Provider: Lennox Seay MD Brain MRI 04/25/16 07:50 IMPRESSION: 1. No acute intracranial abnormality. Specifically, no acute infarction. 2. Mild diffuse parenchymal volume loss. D/ / Sourav Daley MD / Sourav Daley MD Interpreting Provider: Sourav Daley MD Lower extremity venous duplex impressions: Normal right lower extremity deep and superficial venous exam. Normal contralateral common femoral vein. - Time Spent with Patient Total time spent providing and/or coordinating discharge services: - Constitutional Vitals: Temp Pulse Resp BP Pulse Ox 97.4 F L 71 16 115/74 95 04/28/16 07:25 04/28/16 07:25 04/28/16 07:25 04/28/16 07:25 04/28/16 07:25 General appearance: Present: cooperative, A&O X 3, pleasant, no acute distress, answers questions appropriately - Head Head exam: Present: atraumatic, normocephalic - Eye Eye exam: Present: PERRL, conjuntiva pink, sclera anicteric Pupils: Present: PERRL - Neck Neck exam general surgery: Present: supple, trachea midline. Absent: lymphadenopathy - Respiratory Respiratory exam: Present: decreased breath sounds. Absent: accessory muscle use, rales, respiratory distress, rhonchi, wheezes - Cardiovascular Cardiovascular exam: Present: RRR, +S1, +S2. Absent: diastolic murmur, gallop, rubs, systolic murmur - GI/Abdominal GI/Abdominal exam: Present: normal bowel sounds, soft, no peritoneal signs. Absent: distended, tenderness - Extremities Exam Extremities exam: Present: warm, radial pulses palpable and symetrical. Absent : calf tenderness, cyanotic, pedal edema - Expanded Lower Extremities Exam Lower Leg exam: Present: erythema, swelling, tenderness Neuro vascular tendon exam: Present: no vascular compromise Gait: Present: antalgic - Neurological Exam Neurological exam: Present: alert, CN II-XII intact, normal gait, oriented X3, no focal deficits, strengths equal and symetr throughout. Absent: pronater drift, facial droop, speech deficit - Skin Skin exam: Present: dry, intact, normal color, warm
[2016-04-28] MEDS ORDERED: Aminoglycoside Consult 1 EACH MC ONE (11:12)
[2016-04-30] MEDS ORDERED: (Etanercept [Enbrel] 50 MG) SQ SCH (10:25)
== END 2016-04-28 11:13 | disposition home or self-care (01) ==
LOC: 3BNU 05:09 → EMEROO 05:09 → 3BNU 10:54
PROVIDERS: ADMIT Nurse Practitioner Family; ATTEND Nurse Practitioner Family